=== PATIENT | female | born 1955 | race Two or more races ===

== ENCOUNTER 2020-07-23 14:52 | Emergency (ER) | payer OTHER ==
[~2020-07-23] VITALS: Ht 312.4 cm; Wt 49.9 kg
[2020-07-23 15:06] VITALS: BP 130/65; Ht 312.4 cm; Wt 49.9 kg
[2020-07-23 15:35] LABS: microscopic required? NO
[2020-07-23 15:40] LABS: urine erythrocyte NEGATIVE (NEGATIVE)
[2020-07-23 15:47] LABS: CALCIUM 9.8 mg/dL (8.5-10.1); CREATININE SERUM 1.1 mg/dL (0.6-1.0); POTASSIUM SERUM 4.1 mmol/L (3.5-5.1)
[2020-07-23 15:56] LABS: ALBUMIN 4.7 g/dL (3.4-5.0); BILIRUBIN DIRECT 0.14 mg/dL (0.0-0.2); BILIRUBIN TOTAL 0.3 mg/dL (0.20-1.00)
[2020-07-23 16:03] LABS: TOTAL PROTEIN, SERUM 8.7 g/dL (6.4-8.2)
[2020-07-23 16:06] LABS: BASOPHIL % 0.2 % (0-2); PLATELET COUNT 321 x10^3mcL (130-400); RED CELL DISTRIBUTION WIDTH 12.4 % (11.5-14.5)
== END 2020-07-23 17:09 | disposition home or self-care (01) ==
LOC: ED 14:52
PROVIDERS: Emergency Medicine
DX: E11.65 Type 2 diabetes mellitus with hyperglycemia (principal); I10 Essential (primary) hypertension
CPT/HCPCS: 82962; J7030

== ENCOUNTER 2020-08-06 22:16 | Emergency (ER) | payer OTHER ==
[~2020-08-06] VITALS: Ht 152.4 cm; Wt 52.2 kg
[2020-08-06 22:18] VITALS: Ht 152.4 cm; Wt 52.2 kg
[2020-08-07 02:49] LABS: CALCIUM 9.7 mg/dL (8.5-10.1); CARBON DIOXIDE 25.7 mmol/L (21-32); CHLORIDE SERUM 98 mmol/L (98-107); CREATININE SERUM 0.9 mg/dL (0.6-1.0); GFR1 > 60 mL/min; GLUCOSE SERUM 269 mg/dL (74-106); POTASSIUM SERUM 4.4 mmol/L (3.5-5.1); SODIUM SERUM 137 mmol/L (136-145)
[2020-08-07 02:53] LABS: ALBUMIN 4.1 g/dL (3.4-5.0); ALKALINE PHOSPHATASE 84 U/L (46-116); ALT/SGPT 20 U/L (14-59); AST/SGOT 12 U/L (15-37); BILIRUBIN TOTAL 0.2 mg/dL (0.20-1.00); TOTAL PROTEIN, SERUM 7.9 g/dL (6.4-8.2)
[2020-08-07 02:59] LABS: BASOPHIL % 1.6 % (0-2); PLATELET COUNT 386 x10^3mcL (130-400); RED CELL DISTRIBUTION WIDTH 12.3 % (11.5-14.5)
[2020-08-07 04:29] VITALS: BP 142/68
== END 2020-08-07 04:29 | disposition home or self-care (01) ==
LOC: ED 22:16
PROVIDERS: Emergency Medicine
DX: R00.2 Palpitations (principal); I10 Essential (primary) hypertension; E11.9 Type 2 diabetes mellitus without complications
CPT/HCPCS: 82962; 83880